=== PATIENT | male | born 1985 | race Two or more races ===

== ENCOUNTER 2024-05-02 20:49 | Emergency (ER) | payer MEDICAID, SELFPAY ==
[2024-05-02 20:49] VITALS: BMI 21.9
[2024-05-02 21:27] VITALS: BP 125/80; PULSE 99; RESP 18; TEMP 36.6; O2SAT 95
--- NOTE | 2024-05-02 21:31 | PD.EDEAR ---
ED Ear RME/HPI General Chief complaint: Ear Stated complaint: LEFT EARACHE X 2DAYS Time Seen by Provider: 05/02/24 20:53 Arrival date/time: 05/02/24 20:49 39 year old male present to emergency room with c/o of left ear pain for 2 days. pt report bleeding and decrease hearing. LOCATION: ear SEVERITY: Symptoms are described as being severe with limitations on activities of daily living CONTEXT: The patient is unable to identify any inciting events. DURATION/TIMING: The symptoms started approximately 2 days ASSOCIATED SYMPTOMS: The patient is unable to identify any other associated symptoms. MODIFYING FACTORS: The patient is unable to identify any alleviating or aggravating symptoms. PERTINENT ROS: no fevers, no cough, no nausea,vomiting, diarrhea, no dizziness/headache no rash no loc/syncope episode REVIEW OF SYSTEMS: See History of Present Illness - with the exception of those mentioned in the history of present illness, all other systems reviewed and reported as negative GENERAL: In general the patient is awake, interactive, in an emergency department gurney. HEAD/EYES/EARS/NOSE/THROAT: + left ear TM scarring (white) noted. no active bleeding. no mastoid tenderness. no external canal swelling normo-cephalic, atraumatic, mucus membranes are moist, anicteric, palpebral conjunctiva is pink, trachea is midline. CARDIOVASCULAR: regular rate and regular rhythm, no murmurs, heart sounds are not distant, strong pulses in all four extremities that are equal and symmetric bilateral upper and lower leg swelling and no peripheral edema. SKIN: warm, dry, well-perfused, no jaundice, no rash, no telangiectasias or petechia. PSYCH: calm, cooperative, no evidence of psychosis or agitation Related Data Previous Rx's ?Medication ?Instructions ?Recorded ofloxacin 0.3 % ear drops 10 drp otic (ear) QDAY 7 days #5 mL 05/02/24 Allergies Allergy/AdvReac Type Severity Reaction Status Date / Time No Known Allergies Allergy Verified 05/02/24 20:51 Course Course Course Narrative: Patient presenting with otalgia.? Given history and physical exam findings, presentation most consistent with perforated tympanic membrane from underlying otitis media.? The differential also included otitis externa, mastoiditis, dental infection however these are less likely given data presented thus far.? Antibiotics were prescribed as below.? Advised to use Tylenol/ibuprofen for fevers.? Will refer patient to ENT.? Discussed natural course of TM perforation, including that ~70% heal within? week and ~94% heal within? month.? <10% require surgical repair.? Informed to return to ETC if has new or worsening symptoms such as persistent fevers, persistent vomiting, decreased PO. Plan:? Discharge from Emergency Department rx: ofloxicin drops? Tylenol/ibuprofen for fevers/pain Followup with PCP in 2 days Informed to return to Emergency Department if has new or worsening symptoms.? Quality Measures none Vital Signs Vital signs: Vital Signs Temperature 97.9 F 05/02/24 21:27 Pulse Rate 99 05/02/24 21:27 Respiratory Rate 18 05/02/24 21:27 Blood Pressure 125/80 05/02/24 21:27 Pulse Oximetry (%) 95 05/02/24 21:27 Oxygen Delivery Method Room Air 05/02/24 21:27 Ear Patient data External records reviewed:: None Clinical information provided by:: patient Social determinants that could affect healthcare access:: none Patient has the following chronic illnesses:: none How is presenting disease/condition affected by chronic disease/condition?: no chronic disease Evaluation data The following diagnostics were reviewed and interpreted by me:: other (specify) (none ) Lab and/or radiology exams considered but not ordered:: none Interpretation Summary: none Medications / Prescriptions Medications or Prescriptions considered but not ordered:: none Medication administrations:: none Consultations Consultation(s) initiated? (list below): No Diagnosis Most likely diagnosis given after review of the tests above:: TM rupture Admission Indicated Admission indicated?: not indicated Admission Request Was there a request for admission?: No Disposition Plan Disposition Plan: Discharge Discharge Attestation Discharge Attestation: The patient and all family members were given an opportunity to ask questions and understood the discharge instructions. Discharge instructions specifically effects, indications for sooner follow up or return to the emergency department, and the expected course of current diagnosis. Patient condition: Stable Discharge Plan Plan Patient Disposition: HOME (Self Care) Prescriptions/Referrals Prescriptions/Med Rec: New ofloxacin 0.3 % drops 10 drp otic (ear) QDAY 7 Days Qty: 5 0RF Referrals: Temporary Provider,ED [Primary Care Provider] - In 1 week Problem List Clinical Impression: Eardrum rupture Patient/Caregiver Discharge Instructions Education Materials: Ruptured Eardrum Print Language: Estonian Stand Alone Forms: Dorina Award Info., Patient Portal Info Letter
== END 2024-05-02 21:41 | disposition home or self-care (01) ==
LOC: SERX 21:43
PROVIDERS: Emergency Provider Emergency Medicine
DX: H66.92 Otitis media, unspecified, left ear (principal); H72.92 Unspecified perforation of tympanic membrane, left ear
CPT/HCPCS: 99281